=== PATIENT | female | born 1930 | race Caucasian/White ===

== ENCOUNTER 2016-11-04 15:05 | Inpatient (IN) | payer MEDICARE ==
[~2016-11-04] VITALS: Ht 162.6 cm; Wt 85.3 kg
[~2016-11-04 15:05] MED LIST: ASPI-605 PO; FURO40TA5 PO; LEVO25TA7 PO; POTA20TA10 PO; ROSU20TA PO; [UNRECOGNIZED DRUG - REMARK]
--- NOTE | 2016-11-04 15:10 | NUR ---
PT BIB [facility] C/O AMS SINCE YESTERDAY. A/OX1 ONLY, NORMALLY X4. RESP EVEN UNLABORED. DENIES PAIN. SKIN WARM NONDIAPHORETIC. PT'S DAUGHTER STATES "HER SPEECH WAS SLURRED YESTERDAY"; NO SLURRED SPEECH OR OTHER FOCAL DEFICITS NOTED. IN ER BED 09 ON MONITOR.
[2016-11-04] MEDS ORDERED: IV NS 0.9% 1,000 ML BAG IV ONE (15:30)
[2016-11-04] MEDS ORDERED: IV SET PRIMARY 1 EA INFUS.SET MC ONE ×2 (15:31→16:59)
[2016-11-04] MEDS ORDERED: IV NS 0.9% 1,000 ML ONE (15:31)
[2016-11-04 15:35] LABS: BASOPHILS # (AUTO) 0.1 /CMM (0.0-0.2); EOSINOPHILS # (AUTO) 0.1 /CMM (0.0-0.7); EOSINOPHILS % (AUTO) 1.2 % (0.0-6.0); HEMATOCRIT 41 % (33-45); HEMOGLOBIN 12.6 g/dL (11.5-14.8); LYMPHOCYTES % (AUTO) 11.9 % (20.0-44.0); MEAN CORPUSCULAR HEMOGLOBIN 28 PG (26.0-33.0); MEAN CORPUSCULAR HGB CONC 31 g/dl (31.0-36.0); MEAN CORPUSCULAR VOLUME 91 fL (82-100); MONOCYTES # (AUTO) 0.5 /CMM (0.1-1.30); MONOCYTES % (AUTO) 6.6 % (2.0-12.0); NEUTROPHILS # (AUTO) 6.4 /CMM (1.8-8.9); NEUTROPHILS % (AUTO) 79.3 % (43.0-81.0); PLATELET COUNT (AUTO) 202 /CMM (150-450); RED BLOOD CELL COUNT(AUTO) 4.48 MIL/uL (4.0-5.2); WHITE BLOOD COUNT (AUTO) 8.1 K/uL (4.3-11.0)
[2016-11-04 15:36] LABS: BILIRUBIN,URINE Negative (NEGATIVE); BLOOD, URINE Moderate Ery/uL (NEGATIVE); COLOR,URINE Yellow (YELLOW); KETONES,URINE 15 (NEGATIVE); LEUKOCYTE ESTERASE ,URINE Small (NEGATIVE); NITRITE, URINE Negative (NEGATIVE); PROTEIN,URINE >=300 mg/dl (NEGATIVE); UROBILINOGEN,URINE 0.2 EU/dL (0.2)
[2016-11-04 15:41] LABS: APPEARANCE,URINE Slightly Cloudy (CLEAR); UGLUCOSE 100 MG/DL mg/dL (NEGATIVE)
[2016-11-04 15:44] LABS: ADD URINE CULTURE YES; BACTERIA,URINE Moderate /HPF (None Seen); SQUAMOUS EPITHELIAL CELL,UR None Seen /HPF (None Seen)
[2016-11-04 15:45] LABS: WBC,URINE 81-100 /HPF (0-3)
[2016-11-04 15:46] LABS: CALCIUM, SERUM 8.9 mg/dL (8.5-10.1); CREATININE 3.1 mg/dL (0.6-1.3)
[2016-11-04 15:49] LABS: INR 0.97 (0.87-1.13); PROTHROMBIN TIME 10.1 SECS (9.5-12.7)
[2016-11-04 15:51] LABS: ALBUMIN 3.1 g/dL (3.4-5.0); BILIRUBIN,DIRECT 0.2 mg/dL (0.0-0.2); BILIRUBIN,TOTAL 0.5 mg/dL (0.2-1.0); TOTAL PROTEIN, SERUM 6.4 g/dL (6.4-8.2)
[2016-11-04 15:53] LABS: TROPONIN I 0.039 ng/mL (0.00-0.056)
--- NOTE | 2016-11-04 15:55 | NUR ---
pt transported to CT in stable condition
[2016-11-04 16:16] LABS: LACTIC ACID 0.6 mmol/L (0.4-2.0)
[2016-11-04] MEDS ORDERED: CEFTRIAXONE 1GM BAG (ER ONLY) 50 ML IV ONE (16:59)
[2016-11-04] MEDS ORDERED: CEFTRIAXONE 1 G in IV D5W 50 ML IV ONE (17:00)
--- NOTE | 2016-11-04 17:11 | NUR ---
dr beatty at bedside. NAD noted.
[2016-11-04] MEDS ORDERED: hydrALAZINE HCL IV 20 MG VIAL ONE (17:15)
[2016-11-04] MEDS ORDERED: HYDROCODONE/APAP 5/325MG 1 EACH TABLET PO PRN (17:30)
[2016-11-04] MEDS ORDERED: ACETAMINOPHEN 325 MG TABLET PO PRN (17:30)
[2016-11-04] MEDS ORDERED: ZOLPIDEM TARTRATE 5 MG TABLET PO PRN (17:30)
[2016-11-04] MEDS ORDERED: hydrALAZINE HCL IV 20 MG VIAL IV ONE (17:30)
[2016-11-04] MEDS ORDERED: Z GUARD REMEDY 2 OZ OINT TP PRN (17:30)
[2016-11-04] MEDS ORDERED: ONDANSETRON HCL/PF 4 MG/2 ML VIAL IVP PRN (17:30)
[2016-11-04] MEDS ORDERED: MAG HYDROX/AL HYDROX/SIMETH 30 ML UDC PO PRN (17:30)
[2016-11-04] MEDS ORDERED: MAGNESIUM HYDROXIDE 30 ML UDC PO PRN (17:30)
[2016-11-04] MEDS ORDERED: SODIUM POLYSTYRENE SULFONATE 15 G/60 ML BOTTLE PO ONE (17:30)
[2016-11-04] MEDS ORDERED: SENN8.6T6 PO (17:34)
[2016-11-04] MEDS ORDERED: HYDR-4077 PO ×2 (17:34→19:04)
[2016-11-04] MEDS ORDERED: GABA-534 PO (17:34)
[2016-11-04] MEDS ORDERED: POLY17PO4 PO (17:34)
--- NOTE | 2016-11-04 17:52 | NUR ---
REPORT GIVEN TO PATTERN CHAIN MAKER SUPERVISOR FOR ADMISSION
--- NOTE | 2016-11-04 18:10 | NUR ---
PT TRANSPORTED TO [facility] IN STABLE CONDITION VIA ACLS PROTOCOL
[2016-11-04] MEDS ORDERED: EPOE1VIA7 SQ (19:06)
[2016-11-04] MEDS ORDERED: SENN8.6T60 PO (19:09)
[2016-11-04] MEDS ORDERED: hydrALAZINE HCL 50 MG TABLET PO PRN (19:30)
--- NOTE | 2016-11-04 19:30 | NUR ---
TELE/RN RECEIVE PATIENT AWAKE, ALERT, BUT NOT SO VERBALLY RESPONSIVE, COMFORTABLE, NO SIGNS OF DISTRESS NOTED. WILL DO ADMISSION LATER.
[2016-11-04] MEDS ORDERED: ACET-73 PO (19:32)
[2016-11-04] MEDS: hydrALAZINE HCL 50 MG TABLET PO SCH (19:34)
[2016-11-04 20:00] VITALS: BP 145/92
--- NOTE | 2016-11-04 20:17 | NUR ---
TELE/RESIDENTIAL REMODELING SUBCONTRACTOR DONE PER PROTOCOL, PATIENT IS NOT A GOOD HISTORIAN. DAUGHTER, MARCOS, AT BEDSIDE PROVIDED THE INFORMATION FOR THE PATIENT. FALL PRECAUTION PER PROTOCOL INSTITUTE. WILL CONTINUE TO MONITOR.
--- NOTE | 2016-11-04 20:20 | NUR ---
TELE/RN TYLENOL 650 MG PO WAS GIVEN PER DAUGHTER'S REQUEST FOR C/O OF LEG PAIN
[2016-11-04] MEDS ORDERED: IV SET PRIMARY PUMP SET 1 EA INFUS.SET MC ONE (20:56)
[2016-11-04] MEDS: IV NS 0.9% 1,000 ML IV PRN (21:04)
--- NOTE | 2016-11-04 21:57 | NUR ---
TELE/RN PATIENT IS SLEEPING AT THIS TIME, AROUSABLE, APPEAR COMFORTABLE, NO SIGNS OF DISTRESS NOTED, CALL LIGHT IN REACH. WILL CONTINUE TO MONITOR.
[2016-11-04] MEDS: ATORVASTATIN 40 MG TABLET PO SCH (22:00)
[2016-11-04] MEDS: GABAPENTIN 300 MG CAPSULE PO SCH (22:00)
[2016-11-05] VITALS: BP 138/60
[2016-11-05 06:21] LABS: EOSINOPHILS # (AUTO) 0.1 /CMM (0.0-0.7); EOSINOPHILS % (AUTO) 0.7 % (0.0-6.0); HEMATOCRIT 34 % (33-45); HEMOGLOBIN 10.6 g/dL (11.5-14.8); LYMPHOCYTES # (AUTO) 0.8 /CMM (0.8-4.8); LYMPHOCYTES % (AUTO) 8.8 % (20.0-44.0); MEAN CORPUSCULAR HEMOGLOBIN 29 PG (26.0-33.0); MEAN CORPUSCULAR HGB CONC 32 g/dl (31.0-36.0); MEAN CORPUSCULAR VOLUME 91 fL (82-100); MONOCYTES # (AUTO) 0.4 /CMM (0.1-1.30); MONOCYTES % (AUTO) 3.9 % (2.0-12.0); NEUTROPHILS # (AUTO) 8.3 /CMM (1.8-8.9); NEUTROPHILS % (AUTO) 86.6 % (43.0-81.0); PLATELET COUNT (AUTO) 174 /CMM (150-450); RDW COEFFICIENT OF VARIATION 17.6 (11.5-15.0); RED BLOOD CELL COUNT(AUTO) 3.68 MIL/uL (4.0-5.2); WHITE BLOOD COUNT (AUTO) 9.6 K/uL (4.3-11.0)
--- NOTE | 2016-11-05 06:46 | NUR ---
TELE/RN PATIENT IS SLEEPING, AROUSABLE, NO CHANGE IN CONDITION. ALL NEEDS ATTENDED AT THIS TIME. WILL CONTINUE TO MONITOR.
[2016-11-05 06:51] LABS: CALCIUM, SERUM 8.2 mg/dL (8.5-10.1); CREATININE 2.8 mg/dL (0.6-1.3); MAGNESIUM 1.8 mg/dL (1.8-2.4); PHOSPHORUS 4.2 mg/dL (2.5-4.9); POTASSIUM 6.1 mmol/L (3.5-5.1)
--- NOTE | 2016-11-05 07:10 | NUR ---
TELE/RN NO CHANGE IN CONDITION. ENDORSED.
--- NOTE | 2016-11-05 07:40 | NUR ---
ADMINISTRATIVE PROCESSOR OPENING NOTES RECEIVED PATIENT AWAKE AND IN STABLE CONDITION FROM COORDINATOR VOLUNTEER SERVICES NURSE. TELE MONITOR ON READING SINUS RHYTHM . ALERT X1. NO SIGNS OF DISTRESS NOTED. WILL CONTINUE TO MONITOR.
[2016-11-05 08:00] VITALS: BP 150/89
[2016-11-05 08:14] VITALS: BP 150/89
[2016-11-05] MEDS ORDERED: Medication Not On Formulary EA (Rosuvastatin Calcium (Crestor) 1 TAB) PO SCH (09:00)
[2016-11-05] MEDS ORDERED: POTASSIUM CHLORIDE 20 MEQ TAB.PRT.SR PO SCH (09:00)
[2016-11-05] MEDS ORDERED: SODIUM POLYSTYRENE SULFONATE 15 G/60 ML BOTTLE PO ONE (09:30)
[2016-11-05] MEDS: LEVOTHYROXINE SODIUM 25 MCG TABLET PO SCH (09:37)
[2016-11-05] MEDS: hydrALAZINE HCL 50 MG TABLET PO SCH ×3 (09:38→17:17)
[2016-11-05] MEDS: ASPIRIN EC 81 MG TABLET.DR PO SCH (09:38)
[2016-11-05] MEDS: PANTOPRAZOLE 40 MG TABLET.DR PO SCH (09:38)
[2016-11-05] MEDS: AMLODIPINE BESYLATE 5 MG TABLET PO SCH (10:16)
--- NOTE | 2016-11-05 14:50 | NUR ---
DR ROD WAS MESSAGED ABOUT THE PT'S DNR/DNI REQUEST. WILL FOLLOW UP
[2016-11-05 16:00] VITALS: BP 156/78
[2016-11-05] MEDS ORDERED: IV NS 0.9% 250 ML IV ONE (17:05)
[2016-11-05] MEDS ORDERED: SECONDARY IV SET 1 EA INFUS.SET MC ONE (17:05)
[2016-11-05] MEDS: CEFTRIAXONE 1 G in IV D5W 50 ML IV SCH (17:18)
--- NOTE | 2016-11-05 18:17 | NUR ---
PT.'S CODE STATUS CHANGED TO DNR/DNI PER FAMILY REQUEST AND APPROVED BY DR. ROD
--- NOTE | 2016-11-05 18:32 | NUR ---
ENTREPRENEURSHIP PROGRAM DIRECTOR CLOSING NOTES PT IN STABLE CONDITION, AWAKE AND IN BED. A/O X2. TELE MONITOR ON READING SR WITH PACS. NO SOB OR SIGNS OF DISTRESS AT THIS TIME. BREATHING EVEN AND UNLABORED. IV ON RIGHT AC 18G PATENT AND INTACT. NO REDNESS OR INFLAMMATION NOTED. BED IN LOW LOCKED POSITION, SIDE RAILS UP, CALL LIGHT WITHIN PT REACH. ALL SAFETY MEASURES ENFORCED. ALL ORDERS CARRIED OUT AND PT NEEDS WELL ATTENDED TO. WILL ENDORSE TO DIVISION ORDER TECHNICIAN NURSE OR MAIK
[2016-11-05 20:00] VITALS: BP 157/62
[2016-11-05] MEDS: GABAPENTIN 300 MG CAPSULE PO SCH (22:00)
[2016-11-05] MEDS: ATORVASTATIN 40 MG TABLET PO SCH (22:05)
[2016-11-06] VITALS: BP 161/77
[2016-11-06 04:00] VITALS: BP 151/73
--- NOTE | 2016-11-06 06:52 | NUR ---
SECURITY NURSE NOTES AWAKE & RESPONSIVE. NOT IN ANY DISTRESS. NO SOB NOTED. DENIES ANY PAIN OR DISCOMFORT AT THIS TIME. ON TELE SR @ 60 WITH IV-HL PATENT & INTACT. MONITORED ACCORDINGLY. CALL LIGHT WITHIN REACH. BED IN LOWEST POSITION. SR UP X 3 WITH BED ALARM ON FOR SAFETY. WILL ENDORSE TO NEXT SHIFT.
[2016-11-06 08:00] VITALS: BP 110/67
--- NOTE | 2016-11-06 08:00 | NUR ---
AM RN NOTES RECEIVED PT IN STABLE CONDITION, AWAKE, NO SOB OR DISTRESS NOTED, WILL MONITOR.
[2016-11-06] MEDS: ASPIRIN EC 81 MG TABLET.DR PO SCH (08:17)
[2016-11-06] MEDS: LEVOTHYROXINE SODIUM 25 MCG TABLET PO SCH (08:17)
[2016-11-06] MEDS: hydrALAZINE HCL 50 MG TABLET PO SCH ×4 (08:18→16:12)
[2016-11-06] MEDS: AMLODIPINE BESYLATE 5 MG TABLET PO SCH ×2 (08:19→08:31)
[2016-11-06] MEDS: PANTOPRAZOLE 40 MG TABLET.DR PO SCH (08:27)
[2016-11-06] MEDS: SODIUM POLYSTYRENE SULFONATE 15 G/60 ML BOTTLE PO ONE ×2 (08:50→10:00)
--- NOTE | 2016-11-06 10:15 | NUR ---
RECEIVED CALL FROM PT'S DAUGHTER, REQUESTING TO SPIKE WITH DR. MARCEL MD INFORMED.
--- NOTE | 2016-11-06 10:15 | NUR ---
pt refused Kayexalate, pt educated but she stated: " I do not have any problems, my potassium level is perfect, I will not drink that".
--- NOTE | 2016-11-06 11:16 | NUR ---
PT REFUSED BLOOD DRAW X3, RISKS AND BENEFITS OF REFUSAL DISCUSSED, WILL INFORM MD.
--- NOTE | 2016-11-06 12:00 | NUR ---
pt agreed to have blood draw after nephrology visit, lab informed.
--- NOTE | 2016-11-06 12:15 | NUR ---
supervisor hand silvering at bedside, drawing blood.
[2016-11-06 12:41] LABS: BASOPHILS % (AUTO) 0.3 % (0.0-2.0); EOSINOPHILS # (AUTO) 0.1 /CMM (0.0-0.7); EOSINOPHILS % (AUTO) 1.8 % (0.0-6.0); HEMATOCRIT 34 % (33-45); HEMOGLOBIN 10.5 g/dL (11.5-14.8); LYMPHOCYTES # (AUTO) 0.7 /CMM (0.8-4.8); LYMPHOCYTES % (AUTO) 10.1 % (20.0-44.0); MEAN CORPUSCULAR HEMOGLOBIN 28 PG (26.0-33.0); MEAN CORPUSCULAR HGB CONC 31 g/dl (31.0-36.0); MEAN CORPUSCULAR VOLUME 90 fL (82-100); MONOCYTES # (AUTO) 0.5 /CMM (0.1-1.30); NEUTROPHILS # (AUTO) 5.4 /CMM (1.8-8.9); NEUTROPHILS % (AUTO) 79.8 % (43.0-81.0); PLATELET COUNT (AUTO) 173 /CMM (150-450); RDW COEFFICIENT OF VARIATION 17.6 (11.5-15.0); RED BLOOD CELL COUNT(AUTO) 3.73 MIL/uL (4.0-5.2); WHITE BLOOD COUNT (AUTO) 6.8 K/uL (4.3-11.0)
[2016-11-06 12:53] LABS: CREATININE 2.8 mg/dL (0.6-1.3); MAGNESIUM 1.5 mg/dL (1.8-2.4); PHOSPHORUS 4.3 mg/dL (2.5-4.9); POTASSIUM 4.4 mmol/L (3.5-5.1)
[2016-11-06] MEDS ORDERED: QUETIAPINE FUMARATE 25 MG TABLET PO PRN (13:30)
[2016-11-06] MEDS ORDERED: SECONDARY IV SET 1 EA INFUS.SET MC ONE (15:26)
[2016-11-06] MEDS: Magnesium 1GM/D5W 100ML PREMIX 100 ML IV SCH ×2 (15:42→16:38)
[2016-11-06 16:00] VITALS: BP 169/80
[2016-11-06] MEDS: CEFTRIAXONE 1 G in IV D5W 50 ML IV SCH (17:37)
--- NOTE | 2016-11-06 19:00 | NUR ---
MS RN OPENING NOTES RECEIVED PATIENT IN BED IN STABLE CONDITION, IV SITE INTACT WITH S/S OF INFILTRATION. NO S/S OF DISTRESS NO SOB, NO CHEST PAIN. NO S/S PAIN, SAFE FREE ENVIRONMENT PROVIDED FREE OF CLUTTERS, WILL CONTINUE TO MONITOR, ON LOW BED TO ENSURE SAFETY, CALL LIGHT WITHIN REACH.
--- NOTE | 2016-11-06 19:31 | NUR ---
PT IMPROVED MENTALLY, A/O X3 FOR NOW, NO SOB OR DISTRESS NOTED, NO BEHAVIOR PROBLEMS NOTED, COMPLIANT WITH HER IV MEDICATIONS, WILL INDORSE TO NEXT SHIFT FOR MIAK.
[2016-11-06 20:00] VITALS: BP_SYST 102; BP_SYST 165; BP_DIAS 62; BP_DIAS 79
[2016-11-06] MEDS: ATORVASTATIN 40 MG TABLET PO SCH (21:51)
[2016-11-06] MEDS: GABAPENTIN 300 MG CAPSULE PO SCH (21:51)
[2016-11-07 02:18] VITALS: BP 102/62
[2016-11-07] MEDS: IV NS 0.9% 1,000 ML IV PRN (05:35)
--- NOTE | 2016-11-07 06:30 | NUR ---
MS RN CLOSING NOTES PATIENT COMFORTABLY ASLEEP AND EASILY AWAKEN, IV SITE NO S/S OF INFILTRATED, IV ONGOING 75CC/HR TOLERATING WELL. ALL DUE MEDS WAS GIVEN. PATIENT DENIES PAIN AT THIS TIME. 0/10 RESPIRATIONS EVEN AND UNLABORED. NO S/S OF ACUTE DISTRESS, NO SOB, NO COUGH, NO CONGESTION, SKIN WARM AND DRY TO TOUCH, AFEBRILE, ALL NURSING CARE NEEDS PROVIDED AND RENDERED, NEEDS ATTENDED AND ANTICIPATED, KEPT CLEAN AND DRY AND COMFORTABLE, BLADDER NOT DISTENDED, GOOD SKIN CARE PROVIDED. ABDOMEN SOFT AND NON TENDER. NO C/O OF CONSTIPATION. ALL DUE MEDS WAS GIVEN TOLERATED. FREQUENT VISUAL CHECK DONE FOR SAFETY EVERY 2 HOURS. SAFE HAZARD FREE ENVIRONMENT PROVIDED. CALL LIGHT WITHIN EASY TO REACH, ON LOW BED AT ALL TIMES TO ENSURE SAFETY, WILL ENDORSE TO THE NEXT SHIFT CONTINUE PLAN OF CARE.
--- NOTE | 2016-11-07 07:12 | NUR ---
MS RN OPENING NOTES PATIENT RECEIVED IN BED IN AWAKE IN NO ACUTE SIGNS OF DISTRESS. ALERT AND ORIENTED X1. NO S/S OF PAIN OR DISCOMFORTS NOTED. IV ACCESS SITE INTACT AND PATENT WITH ONGOING IVF OF NS @ 75CC/HR, NO SIGNS OF INFILTRATION NOTED. ON ROOM AIR, NO SOB OBSERVED. BED ON LOW POSITION AND LOCKED. CALL LIGHT WITHIN EASY REACH. SAFE FREE ENVIRONMENT MAINTAINED. . WILL CONTINUE TO MONITOR ACCORDINGLY.
[2016-11-07] MEDS: PANTOPRAZOLE 40 MG TABLET.DR PO SCH (07:50)
[2016-11-07] MEDS: LEVOTHYROXINE SODIUM 25 MCG TABLET PO SCH (07:54)
[2016-11-07 08:00] VITALS: BP 166/78
[2016-11-07] MEDS: ASPIRIN EC 81 MG TABLET.DR PO SCH (08:44)
[2016-11-07] MEDS: AMLODIPINE BESYLATE 5 MG TABLET PO SCH (08:45)
[2016-11-07] MEDS: hydrALAZINE HCL 50 MG TABLET PO SCH ×2 (08:45→12:49)
[2016-11-07 12:49] VITALS: BP 152/84
--- NOTE | 2016-11-07 16:41 | NUR ---
RN DISCHARGED NOTES PATIENT DISCHARGE HOME AND LEFT UNIT AT 1630 IN STABLE CONDITION VIA WHEELCHAIR ACCOMPANIED BY BRICKLAYER APPRENTICE OF MEDICAL TRANSPORTATION SERVICE AND CAREGIVER. ALERT AND ORIENTED X 3, NO COMPLAINTS OF PAIN OR DISCOMFORTS DURING DISCHARGE. V/S CHECKED AND RECORDED. SKIN IS INTACT. BELONGINGS CHECKED, COUNTED SIGNED AND FORM. PNEUMO VACCINE REFUSED BY PATIENT. HEALTH TEACHINGS GIVEN TO PATIENT AND CAREGIVER AND BOTH VERBALIZED UNDERSTANDING. MD AND CHARGE NURSE AWARE OF DISCHARGE.
[2016-11-10] MEDS ORDERED: EPOETIN ALFA (10,000 UNIT) 10,000 UNIT/ML VIAL SQ SCH (15:00)
== END 2016-11-07 16:15 | disposition home health service (06) | DRG 682 ==
LOC: ER 15:07 → TELE 17:50 → MED 11-06 08:42
PROVIDERS: ADMIT Internal Medicine; ATTEND Internal Medicine
DX: N17.9 Acute kidney failure, unspecified (principal); G92 Toxic encephalopathy; N39.0 Urinary tract infection, site not specified; I25.10 Atherosclerotic heart disease of native coronary artery without angina pectoris; E11.22 Type 2 diabetes mellitus with diabetic chronic kidney disease; I12.9 Hypertensive chronic kidney disease with stage 1 through stage 4 chronic kidney disease, or unspecified chronic kidney disease; Z66 Do not resuscitate; Z86.73 Personal history of transient ischemic attack (TIA), and cerebral infarction without residual deficits; N18.9 Chronic kidney disease, unspecified; Z95.5 Presence of coronary angioplasty implant and graft; I25.2 Old myocardial infarction; Z85.3 Personal history of malignant neoplasm of breast; Z79.899 Other long term (current) drug therapy; Z79.82 Long term (current) use of aspirin; Z95.2 Presence of prosthetic heart valve; Z91.048 Other nonmedicinal substance allergy status; H35.30 Unspecified macular degeneration; Z90.11 Acquired absence of right breast and nipple; E87.5 Hyperkalemia; E03.9 Hypothyroidism, unspecified; R29.6 Repeated falls; F01.50 Vascular dementia, unspecified severity, without behavioral disturbance, psychotic disturbance, mood disturbance, and anxiety; E86.0 Dehydration; E78.5 Hyperlipidemia, unspecified; F09 Unspecified mental disorder due to known physiological condition; G30.9 Alzheimer's disease, unspecified; F02.80 Dementia in other diseases classified elsewhere, unspecified severity, without behavioral disturbance, psychotic disturbance, mood disturbance, and anxiety
CPT/HCPCS: 36415; 70450-TC; 71010-TC; 80048-TC; 80061-TC; 80076-TC; 81000-TC; 83605-TC; 83735-TC; 84100-TC; 84132-TC; 84484-TC; 85025-TC; 85730-TC; 87040-TC; 87081-TC; 87086-TC; 87186-TC; 93307-TC; 97001-TC; A4606; J0360; J0696; J3475; J7030; J7050; J7060; Z7610

== ENCOUNTER 2018-08-22 16:24 | Emergency (ER) | payer MEDICARE ==
[~2018-08-22] VITALS: Ht 160 cm; Wt 72.6 kg
[~2018-08-22 16:24] MED LIST changes: +ACET-73 PO; +EPOE1VIA7 SQ; +GABA-534 PO; +HYDR-4077 PO; +POLY17PO4 PO; -POTA20TA10 PO; -ROSU20TA PO; +ROSU20TA2 PO; +SENN8.6T60 PO
[2018-08-22] MEDS ORDERED: LIDOCAINE VISCOUS 2% UD 15 ML UDC ONE (16:45)
--- NOTE | 2018-08-22 16:45 | NUR ---
BIB [facility] C/O NOSE BLEED X 2 HRS - NO INJURY, H/O HIGH BP. ALERT AND ORIENTED X 4, VERBALLY RESPONSIVE AND ABLE TO MAKE NEEDS KNOWN. DENIES ANY PAIN AT THIS TIME. ON ROOM AIR, BREATHING EVENLY AND UNLABORED. CONNECTED TO THE MONITOR. DR. SPENCER AT BEDSIDE FOR EVAL. KEPT COMFORTABLE. WILL CONTINUE TO MONITOR ACCORDINGLY.
[2018-08-22 16:57] LABS: BASOPHILS % (AUTO) 0.4 % (0.0-2.0); EOSINOPHILS % (AUTO) 3.6 % (0.0-6.0); HEMATOCRIT 29 % (33-45); HEMOGLOBIN 9.2 g/dL (11.5-14.8); LYMPHOCYTES # (AUTO) 1.4 /CMM (0.8-4.8); LYMPHOCYTES % (AUTO) 20.6 % (20.0-44.0); MEAN CORPUSCULAR HGB CONC 32 g/dl (31.0-36.0); MEAN CORPUSCULAR VOLUME 94 fL (82-100); MONOCYTES # (AUTO) 0.7 /CMM (0.1-1.30); MONOCYTES % (AUTO) 10.5 % (2.0-12.0); NEUTROPHILS # (AUTO) 4.3 /CMM (1.8-8.9); NEUTROPHILS % (AUTO) 64.9 % (43.0-81.0); PLATELET COUNT (AUTO) 187 /CMM (150-450); RED BLOOD CELL COUNT(AUTO) 3.12 MIL/uL (4.0-5.2); WHITE BLOOD COUNT (AUTO) 6.6 K/uL (4.3-11.0)
[2018-08-22] MEDS ORDERED: ENALAPRILAT DIHYD. (2.5MG/ML) 1.25 MG/ML VIAL IV ONE (16:57)
[2018-08-22] MEDS ORDERED: IV NS 0.9% 500 ML BAG IV ONE (17:00)
[2018-08-22] MEDS ORDERED: ENALAPRILAT INJ (1.25 MG/ML) 1.25 MG/ML VIAL IV PRN (17:00)
[2018-08-22 17:32] LABS: CALCIUM, SERUM 9.3 mg/dL (8.5-10.1); CARBON DIOXIDE 26 mmol/L (21-32); CHLORIDE 110 mmol/L (98-107); CREATININE 3.5 mg/dL (0.6-1.3); GLUCOSE 170 mg/dL (74-106); POTASSIUM 4.5 mmol/L (3.5-5.1); SODIUM SERUM 148 mmol/L (136-145); UREA NITROGEN, BLOOD 48 mg/dL (7-18)
[2018-08-22 17:36] LABS: ALANINE AMINOTRANSFERASE 41 U/L (12-78); ALBUMIN 3.7 g/dL (3.4-5.0); ALKALINE PHOSPHATASE 69 U/L (46-116); ASPARTATE AMINOTRANSFERASE 24 U/L (15-37); BILIRUBIN,DIRECT 0.1 mg/dL (0.0-0.2); BILIRUBIN,TOTAL 0.4 mg/dL (0.2-1.0); LIPASE 305 U/L (73-393); TOTAL PROTEIN, SERUM 7.2 g/dL (6.4-8.2)
[2018-08-22 19:03] VITALS: BP 169/75
--- NOTE | 2018-08-22 19:05 | NUR ---
Patient discharged to home in stable condition. Written and verbal after care instructions given. Patient verbalizes understanding of instruction.IV removed. Catheter intact and site benign. Pressure and 4x4 applied to site. No bleeding noted.
== END 2018-08-22 19:04 | disposition home or self-care (01) ==
LOC: ER 16:31
DX: R04.0 Epistaxis (principal); E11.22 Type 2 diabetes mellitus with diabetic chronic kidney disease; I12.9 Hypertensive chronic kidney disease with stage 1 through stage 4 chronic kidney disease, or unspecified chronic kidney disease; N18.9 Chronic kidney disease, unspecified; G89.29 Other chronic pain; E78.00 Pure hypercholesterolemia, unspecified; E03.9 Hypothyroidism, unspecified; I25.2 Old myocardial infarction; Z85.3 Personal history of malignant neoplasm of breast; Z96.651 Presence of right artificial knee joint; Z90.10 Acquired absence of unspecified breast and nipple; Z79.82 Long term (current) use of aspirin; Z91.048 Other nonmedicinal substance allergy status
CPT/HCPCS: 36415; 80048-TC; 80076-TC; 83690-TC; 84484-TC; 85025-TC; 85730-TC; J3490; J7040

== ENCOUNTER 2018-08-25 11:13 | Emergency (ER) | payer MEDICARE ==
[~2018-08-25] VITALS: Ht 157.5 cm; Wt 65.8 kg
[2018-08-25 11:13] VITALS: BP 158/80
== END 2018-08-25 11:43 | disposition home or self-care (01) ==
LOC: ER 11:18
DX: Z48.01 Encounter for change or removal of surgical wound dressing (principal); E11.22 Type 2 diabetes mellitus with diabetic chronic kidney disease; I12.9 Hypertensive chronic kidney disease with stage 1 through stage 4 chronic kidney disease, or unspecified chronic kidney disease; N18.9 Chronic kidney disease, unspecified; E78.00 Pure hypercholesterolemia, unspecified; E03.9 Hypothyroidism, unspecified; I25.2 Old myocardial infarction; G89.29 Other chronic pain; M25.561 Pain in right knee; Z90.10 Acquired absence of unspecified breast and nipple; Z85.3 Personal history of malignant neoplasm of breast; Z91.048 Other nonmedicinal substance allergy status; Z79.82 Long term (current) use of aspirin
CPT/HCPCS: Z7502